=== PATIENT | female | born 1970 | race African-American/Black ===

== ENCOUNTER 2019-12-07 06:15 | Emergency (ER) | payer MEDICAID ==
[~2019-12-07] VITALS: Ht 170.2 cm; Wt 127.0 kg
[~2019-12-07 06:15] MED LIST: ARIP15TA2; BUS5; DIPH50TA19; HYDROXZINE; LORAZEPAM; PARO-41
[2019-12-07] MEDS ORDERED: ASPIRIN 81MG TABLET PO ONE (07:15)
[2019-12-07] MEDS ORDERED: NITROGLYCERIN 0.4MG TABLET SL SL PRN (07:15)
[2019-12-07 07:26] LABS: BASOPHILS % 0.8 % (0.0-2.0); EOSINOPHILS % 1.2 % (0.0-5.0); HEMATOCRIT. 37.2 % (36.0-48.0); HEMOGLOBIN. 12.1 g/dL (12.0-16.0); LYMPHOCYTES % 16.8 % (20.0-50.0); MEAN CORPUSCULAR HEMOGLOBIN 23.5 pg (28.0-32.0); MEAN CORPUSCULAR VOLUME 72.5 fL (81.0-99.0); MEAN PLATELET VOLUME 8.2 fl (7.4-10.4); MONOCYTES % 6.3 % (2.0-8.0); NEUTROPHILS % 74.9 % (40.0-76.0); PLATELET 421 x1000/uL (130-400); RED BLOOD CELL COUNT 5.13 mill/uL (4.2-5.4); RED CELL DISTRIBUTION WIDTH 18.2 % (11.6-14.6)
[2019-12-07 07:36] LABS: CHLORIDE 108 mEq/L (98-107)
[2019-12-07 07:42] LABS: HCG SCREEN NEGATIVE
[2019-12-07 10:42] VITALS: BP 147/87
== END 2019-12-07 10:47 | disposition home or self-care (01) ==
LOC: ER 06:15
DX: R07.9 Chest pain, unspecified (principal); J45.909 Unspecified asthma, uncomplicated; I10 Essential (primary) hypertension; D64.9 Anemia, unspecified
CPT/HCPCS: 36415; 71045; 80053; 83880; 84439; 84443; 84481; 84484; 84703; 85025; 93005; 99285; Z7610

== ENCOUNTER 2022-04-11 21:32 | Inpatient (IN) | payer MEDICAID, OTHER ==
[~2022-04-11] VITALS: Ht 177.8 cm; Wt 158.8 kg
[2022-04-11] MEDS ORDERED: SODIUM CHLORIDE 0.9% 1,000 ML IV ONE (22:45)
[2022-04-11 23:30] LABS: BASOPHILS % 0.9 % (0.0-2.0); CHLORIDE 103 mEq/L (98-107); HEMATOCRIT. 40.5 % (36.0-48.0); LYMPHOCYTES % 12.5 % (20.0-50.0); MEAN CORPUSCULAR HEMOGLOBIN 23.9 pg (28.0-32.0); MEAN CORPUSCULAR VOLUME 74.6 fL (81.0-99.0); MEAN PLATELET VOLUME 8.7 fl (7.4-10.4); MONOCYTES % 12.7 % (2.0-8.0); NEUTROPHILS % 73.9 % (40.0-76.0); PLATELET 319 x1000/uL (130-400); RED BLOOD CELL COUNT 5.43 mill/uL (4.2-5.4); RED CELL DISTRIBUTION WIDTH 17.1 % (11.6-14.6)
[2022-04-11] MEDS ORDERED: AZITHROMYCIN 500MG/250ML 250 ML IV ONE (23:30)
[2022-04-11] MEDS ORDERED: CEFTRIAXONE 1 G PREMIX 50 ML IV ONE (23:30)
[2022-04-11 23:32] LABS: HCG SCREEN NEGATIVE
[2022-04-11 23:46] LABS: ETHANOL BLOOD < 10 mg/dL
[2022-04-12 02:28] LABS: CLARITY URINE CLOUDY (CLEAR); COLOR URINE YELLOW (YELLOW); KETONES URINE TRACE (NEGATIVE); LEUKOCYTE ESTERASE URINE 1+ (NEGATIVE); NITRITE URINE NEGATIVE (NEGATIVE); OCCULT BLOOD URINE NEGATIVE (NEGATIVE); PROTEIN URINE 2+ (NEGATIVE); SPECIFIC GRAVITY URINE 1.015 (1.005-1.030)
[2022-04-12 02:49] LABS: *AMPHETAMINES SCREEN URINE NEGATIVE (NEGATIVE); *BARBITURATES SCREEN URINE NEGATIVE (NEGATIVE); *BENZODIAZEPINES SCREEN URINE NEGATIVE (NEGATIVE); *COCAINE SCREEN URINE NEGATIVE (NEGATIVE); CANNABINOID URINE SCREEN NEGATIVE (NEGATIVE); METHADONE URINE SCREEN NEGATIVE (NEGATIVE); OPIATES URINE SCREEN NEGATIVE (NEGATIVE); PHENCYCLIDINE URINE SCREEN NEGATIVE (NEGATIVE)
[2022-04-12] MEDS ORDERED: IOHEXOL-350 100 ML BOTTLE ONE (02:59)
[2022-04-12 05:30] VITALS: BP 106/61
[2022-04-12] MEDS ORDERED: *PATIENT'S OWN MEDICATION STORAGE XX SCH (06:30)
[2022-04-12] MEDS ORDERED: CEPH500T MT (06:39)
[2022-04-12] MEDS ORDERED: TOPUD PO (06:39)
[2022-04-12] MEDS ORDERED: SERT-422 MT (06:39)
[2022-04-12] MEDS ORDERED: LOSA50TA41 PO (06:39)
[2022-04-12] MEDS ORDERED: TRAMADOL 50MG TABLET PO PRN (07:00)
[2022-04-12] MEDS ORDERED: DOCUSATE SODIUM 100MG CAPSULE PO PRN (07:00)
[2022-04-12] MEDS ORDERED: PIPERACILLIN/TAZOBACTAM 3.375 G in DEXTROSE 5% WATER 50 ML IV SCH (07:00)
[2022-04-12] MEDS ORDERED: ONDANSETRON HCL 4MG/2ML INJ IV PRN (07:00)
[2022-04-12] MEDS ORDERED: PIPERACILLIN/TAZ 3.375G PREMIX 50 ML IV NR (07:00)
[2022-04-12] MEDS ORDERED: MAGNESIUM/ALUMINUM HYDROXIDE/SIMETHICONE 30ML UDC PO PRN (07:00)
[2022-04-12] MEDS ORDERED: ACETAMINOPHEN 325MG TABLET PO PRN (07:00)
[2022-04-12 08:00] VITALS: BP_SYST 107; BP_SYST 115; BP_DIAS 67; BP_DIAS 75
[2022-04-12] MEDS: ENOXAPARIN 40MG/0.4ML SYR SUBCUT SCH ×2 (09:41→22:09)
[2022-04-12] MEDS: SODIUM CHLORIDE 0.9% 1,000 ML IV SCH ×2 (10:37→20:20)
[2022-04-12] MEDS ORDERED: NALOXONE HCL 0.4MG/ML VIAL IV PRN (11:00)
[2022-04-12 12:00] VITALS: BP 105/68
[2022-04-12] MEDS ORDERED: PIPERACILLIN/TAZOBACTAM 3.375G in DEXT 5% WATER 50ML IV SCH (14:00)
[2022-04-12] MEDS: PIPERACILLIN/TAZOBACTAM 3.375G in DEXT 5% WATER 50ML IV SCH ×2 (14:55→23:21)
[2022-04-12 16:00] VITALS: BP_SYST 117; BP_DIAS 74; BP_DIAS 78
[2022-04-12 20:00] VITALS: BP_SYST 101; BP_SYST 105; BP_DIAS 66; BP_DIAS 69
[2022-04-12] MEDS ORDERED: IPRATROPIUM/ALBUTEROL 0.5-3(2.5)MG/3ML NEB HHN PRN (23:00)
[2022-04-13] VITALS: BP 110/61
[2022-04-13 04:00] VITALS: BP 121/82
[2022-04-13] MEDS: PIPERACILLIN/TAZOBACTAM 3.375G in DEXT 5% WATER 50ML IV SCH ×2 (06:29→14:10)
[2022-04-13 06:40] LABS: BASOPHILS % 0.5 % (0.0-2.0); EOSINOPHILS % 0.1 % (0.0-5.0); HEMATOCRIT. 38.7 % (36.0-48.0); HEMOGLOBIN. 12.4 g/dL (12.0-16.0); LYMPHOCYTES % 18.1 % (20.0-50.0); MEAN CORPUSCULAR HEMOGLOBIN 24.1 pg (28.0-32.0); MEAN CORPUSCULAR VOLUME 75.5 fL (81.0-99.0); MEAN PLATELET VOLUME 8.7 fl (7.4-10.4); MONOCYTES % 10.4 % (2.0-8.0); NEUTROPHILS % 70.9 % (40.0-76.0); PLATELET 305 x1000/uL (130-400); RED BLOOD CELL COUNT 5.13 mill/uL (4.2-5.4); RED CELL DISTRIBUTION WIDTH 16.8 % (11.6-14.6)
[2022-04-13 07:35] LABS: CHLORIDE 106 mEq/L (98-107); HDL CHOLESTEROL 27 mg/dL (40-59); LDL CHOLESTEROL 90 mg/dL (5-100)
[2022-04-13 08:00] VITALS: BP 139/74
[2022-04-13] MEDS: ENOXAPARIN 40MG/0.4ML SYR SUBCUT SCH (08:13)
[2022-04-13] MEDS: SODIUM CHLORIDE 0.9% 1,000 ML IV SCH (08:13)
[2022-04-13 12:00] VITALS: BP 131/76
[2022-04-13 13:12] VITALS: BP 131/76
[2022-04-13 16:00] VITALS: BP 125/81
== END 2022-04-13 16:30 | disposition home or self-care (01) | DRG 720 ==
LOC: ER 21:32 → 8WST 04-12 03:38 → ENRESERV 04-12 04:24
PROVIDERS: ADMIT Hospitalist; ATTEND Hospitalist
DX: A41.9 Sepsis, unspecified organism (principal); J96.91 Respiratory failure, unspecified with hypoxia; N17.9 Acute kidney failure, unspecified; E44.1 Mild protein-calorie malnutrition; J45.901 Unspecified asthma with (acute) exacerbation; Z68.43 Body mass index [BMI] 50.0-59.9, adult; E04.2 Nontoxic multinodular goiter; Z20.822 Contact with and (suspected) exposure to COVID-19; I10 Essential (primary) hypertension; N39.0 Urinary tract infection, site not specified; Z82.49 Family history of ischemic heart disease and other diseases of the circulatory system; Z79.899 Other long term (current) drug therapy; Z88.8 Allergy status to other drugs, medicaments and biological substances
CPT/HCPCS: 36415; 71045; 71275; 76536; 80053; 80061; 80305; 80307; 80320; 80329; 81003; 83605; 84145; 84439; 84443; 84484; 84703; 85025; 85379; 86850; 86870; 86900; 87426; 93005; 93306; 93970; 99291; C9803; J0456; J0696; J1650; J2543; J7030; J7060; Q9967; G0480

== ENCOUNTER 2023-02-05 09:31 | Emergency (ER) | payer MEDICAID ==
[~2023-02-05] VITALS: Ht 175.3 cm; Wt 108.0 kg
[~2023-02-05 09:31] MED LIST changes: -ARIP15TA2; -BUS5; +CEPH500T MT; -DIPH50TA19; -HYDROXZINE; -LORAZEPAM; +LOSA50TA41 PO; -PARO-41; +SERT-422 MT; +TOPUD PO
[2023-02-05 09:38] VITALS: BP 166/120; TEMP 98.2; O2SAT 98
[2023-02-05] MEDS ORDERED: OFLO5DRO RIGHTEYE (12:07)
[2023-02-05 12:10] VITALS: PULSE 94; RESP 18
== END 2023-02-05 14:10 | disposition home or self-care (01) ==
LOC: ER 09:31
DX: H10.9 Unspecified conjunctivitis (principal); I10 Essential (primary) hypertension; J45.909 Unspecified asthma, uncomplicated
CPT/HCPCS: 99283

== ENCOUNTER 2023-08-07 14:55 | Emergency (ER) | payer MEDICAID ==
[~2023-08-07] VITALS: Ht 170.2 cm; Wt 109.0 kg
[~2023-08-07 14:55] MED LIST changes: +OFLO5DRO RIGHTEYE
[2023-08-07 15:03] VITALS: O2SAT 99
[2023-08-07] MEDS ORDERED: LOSA50TA41 PO (15:44)
[2023-08-07] MEDS ORDERED: P50 MT (15:44)
[2023-08-07] MEDS ORDERED: ALBU6.7H15 INH (15:44)
[2023-08-07 16:11] VITALS: BP 147/108; PULSE 93; RESP 20; TEMP 97.8
== END 2023-08-07 16:12 | disposition home or self-care (01) ==
LOC: ER 14:55
DX: J45.901 Unspecified asthma with (acute) exacerbation (principal); I10 Essential (primary) hypertension; D64.89 Other specified anemias
CPT/HCPCS: 99283

== ENCOUNTER 2023-12-26 10:07 | Emergency (ER) | payer MEDICAID ==
[~2023-12-26] VITALS: Ht 180.3 cm; Wt 127.0 kg
[~2023-12-26 10:07] MED LIST changes: +ALBU6.7H15 INH; +P50 MT
[2023-12-26 10:12] VITALS: O2SAT 94
[2023-12-26] MEDS: DIPHENHYDRAMINE 50MG/ML VIAL IM ONE (10:42)
[2023-12-26] MEDS ORDERED: HYDR453.3 TP (11:44)
[2023-12-26 12:00] VITALS: BP 148/88; PULSE 96; RESP 16; TEMP 98.3
== END 2023-12-26 12:01 | disposition home or self-care (01) ==
LOC: ER 10:14
DX: T78.40XA Allergy, unspecified, initial encounter (principal); I10 Essential (primary) hypertension; J45.909 Unspecified asthma, uncomplicated; Z79.899 Other long term (current) drug therapy; X58.XXXA Exposure to other specified factors, initial encounter
CPT/HCPCS: 99283; 96372; J1200

== ENCOUNTER 2024-08-24 18:58 | Emergency (ER) | payer MEDICAID, OTHER ==
[~2024-08-24] VITALS: Ht 180.3 cm; Wt 141.0 kg
[~2024-08-24 18:58] MED LIST changes: +AMLO10TA80 PO; -CEPH500T MT; +FAMO20TA8 PO; +FERR-63 PO; +HYDR453.3 TP; +P20 PO; -P50 MT
[2024-08-24 19:20] VITALS: O2SAT 95
[2024-08-25 01:42] VITALS: BP 135/75; PULSE 90; RESP 18; TEMP 36.9; O2SAT 97
== END 2024-08-25 01:45 | disposition home or self-care (01) ==
LOC: ER 18:58
DX: G62.89 Other specified polyneuropathies (principal); I10 Essential (primary) hypertension; J45.909 Unspecified asthma, uncomplicated; Z79.52 Long term (current) use of systemic steroids; Z79.899 Other long term (current) drug therapy; Z88.5 Allergy status to narcotic agent
CPT/HCPCS: 73130; 99283

== ENCOUNTER 2024-12-19 22:36 | Inpatient (IN) | payer MEDICAID ==
[~2024-12-19] VITALS: Ht 177.8 cm; Wt 162.0 kg
[~2024-12-19 22:36] MED LIST changes: +FURO-151 MT; +POTA-205 MT
[2024-12-20] VITALS (8 sets, daily range): BP systolic 100–132; BP diastolic 67–80; PULSE 72–101; RESP 16–25; TEMP 36.4–36.9; O2SAT 97–100
[2024-12-20 00:32] LABS: BASOPHILS % 0.6 % (0.0-2.0); EOSINOPHILS % 1.4 % (0.0-5.0); HEMATOCRIT. 42.6 % (36.0-48.0); HEMOGLOBIN. 13.6 g/dL (12.0-16.0); LYMPHOCYTES % 9.4 % (20.0-50.0); MEAN PLATELET VOLUME 8.8 fl (7.4-10.4); MONOCYTES % 10.5 % (2.0-8.0); NEUTROPHILS % 78.1 % (40.0-76.0); PLATELET 304 x1000/uL (130-400); RED BLOOD CELL COUNT 5.57 mill/uL (4.2-5.4); RED CELL DISTRIBUTION WIDTH 17.6 % (11.6-14.6)
[2024-12-20 00:42] LABS: UREA NITROGEN BLOOD 25 mg/dL (9-23)
[2024-12-20 00:43] LABS: ETHANOL BLOOD < 10 mg/dL (<10); TROPONIN I HIGH SENSITIVITY < 4 ng/L (3.0-34)
[2024-12-20 00:44] LABS: ASPARTATE AMINOTRANSFERASE 20 IU/L (<34); BILIRUBIN DIRECT 0.2 mg/dL (<=3.0); BILIRUBIN TOTAL 0.5 mg/dL (0.1-1.0); PROTEIN TOTAL 7.2 g/dL (6.0-8.3)
[2024-12-20 00:48] LABS: CREATININE 1.4 mg/dL (0.6-1.0)
[2024-12-20 01:02] LABS: INR 1.0
[2024-12-20] MEDS ORDERED: ACETAMINOPHEN 325MG TABLET PO PRN ×2 (05:15→17:45)
[2024-12-20] MEDS: IPRATROPIUM/ALBUTEROL 0.5-3(2.5)MG/3ML NEB HHN SCH (08:48)
[2024-12-20] MEDS: AMLODIPINE 10MG TABLET PO SCH (09:00)
[2024-12-20] MEDS: LOSARTAN 50 MG TABLET PO SCH (09:00)
[2024-12-20 09:30] LABS: BASOPHILS % 0.2 % (0.0-2.0); EOSINOPHILS % 1.1 % (0.0-5.0); HEMATOCRIT. 41.1 % (36.0-48.0); HEMOGLOBIN. 13.5 g/dL (12.0-16.0); LYMPHOCYTES % 11.0 % (20.0-50.0); MEAN PLATELET VOLUME 8.6 fl (7.4-10.4); MONOCYTES % 8.3 % (2.0-8.0); NEUTROPHILS % 79.4 % (40.0-76.0); PLATELET 297 x1000/uL (130-400); RED BLOOD CELL COUNT 5.38 mill/uL (4.2-5.4); RED CELL DISTRIBUTION WIDTH 17.5 % (11.6-14.6)
[2024-12-20] MEDS: FERROUS SULFATE 325MG TABLET PO SCH (09:39)
[2024-12-20] MEDS: POTASSIUM CHLORIDE 20MEQ TABLET SR PO SCH (09:39)
[2024-12-20] MEDS: SERTRALINE HCL 50MG TABLET PO SCH (09:40)
[2024-12-20] MEDS: CIPROFLOXACIN 0.3% OPHTH SOLN 2.5ML RIGHTEYE SCH (09:40)
[2024-12-20] MEDS: ENOXAPARIN 40MG/0.4ML SYR SUBCUT SCH (09:40)
[2024-12-20 09:45] LABS: CREATININE 1.0 mg/dL (0.6-1.0); UREA NITROGEN BLOOD 23 mg/dL (9-23)
[2024-12-20] MEDS ORDERED: DEXTROSE 50% WATER 50ML SYRINGE IV PRN (17:45)
[2024-12-20] MEDS ORDERED: ONDANSETRON HCL 4MG/2ML INJ IV PRN (17:45)
[2024-12-20] MEDS ORDERED: IPRATROPIUM/ALBUTEROL 0.5-3(2.5)MG/3ML NEB HHN PRN (17:45)
[2024-12-20] MEDS: INSULIN LISPRO 100 UNITS/ML SUBCUT SCH (21:00)
[2024-12-20] MEDS: BLOOD SUGAR DIAGNOSTIC STRIP TEST SCH (21:00)
[2024-12-20] MEDS: FAMOTIDINE 20MG TABLET PO SCH (21:00)
[2024-12-21] VITALS (9 sets, daily range): BP systolic 96–135; BP diastolic 64–99; PULSE 78–90; RESP 14–20; TEMP 36.6–37.2; O2SAT 98–100
[2024-12-21] MEDS: FUROSEMIDE 40MG/4ML VIAL IVP SCH (08:41)
[2024-12-21] MEDS ORDERED: PANTOPRAZOLE SODIUM 40 MG/VIAL IV SCH (09:00)
[2024-12-21 09:13] LABS: BASOPHILS % 0.3 % (0.0-2.0); EOSINOPHILS % 1.4 % (0.0-5.0); HEMATOCRIT. 43.4 % (36.0-48.0); HEMOGLOBIN. 14.1 g/dL (12.0-16.0); LYMPHOCYTES % 11.1 % (20.0-50.0); MEAN PLATELET VOLUME 8.9 fl (7.4-10.4); MONOCYTES % 8.9 % (2.0-8.0); NEUTROPHILS % 78.3 % (40.0-76.0); PLATELET 309 x1000/uL (130-400); RED BLOOD CELL COUNT 5.65 mill/uL (4.2-5.4); RED CELL DISTRIBUTION WIDTH 17.3 % (11.6-14.6)
[2024-12-21 09:27] LABS: CREATININE 0.9 mg/dL (0.6-1.0); UREA NITROGEN BLOOD 20 mg/dL (9-23)
[2024-12-21 13:55] LABS: BASOPHILS % 0.5 % (0.0-2.0); EOSINOPHILS % 1.0 % (0.0-5.0); HEMATOCRIT. 44.0 % (36.0-48.0); HEMOGLOBIN. 13.7 g/dL (12.0-16.0); LYMPHOCYTES % 11.8 % (20.0-50.0); MEAN PLATELET VOLUME 8.5 fl (7.4-10.4); MONOCYTES % 7.1 % (2.0-8.0); NEUTROPHILS % 79.6 % (40.0-76.0); PLATELET 303 x1000/uL (130-400); RED BLOOD CELL COUNT 5.63 mill/uL (4.2-5.4); RED CELL DISTRIBUTION WIDTH 17.8 % (11.6-14.6)
[2024-12-21 14:11] LABS: CREATININE 0.9 mg/dL (0.6-1.0); UREA NITROGEN BLOOD 18 mg/dL (9-23)
== END 2024-12-21 16:08 | disposition home or self-care (01) | DRG 48 ==
LOC: ER 22:36 → EDBEDREQ 12-20 00:50 → EDBEDREQDT 12-20 00:50 → EDBEDREQTM 12-20 00:50 → ENRESERV 12-20 01:32 → 3WST 12-20 01:52
PROVIDERS: ADMIT Internal Medicine; ATTEND Internal Medicine
DX: G90.89 Other disorders of autonomic nervous system (principal); J96.01 Acute respiratory failure with hypoxia; I11.0 Hypertensive heart disease with heart failure; I50.32 Chronic diastolic (congestive) heart failure; I95.9 Hypotension, unspecified; E86.0 Dehydration; E78.00 Pure hypercholesterolemia, unspecified; J45.909 Unspecified asthma, uncomplicated; R73.03 Prediabetes; Z88.5 Allergy status to narcotic agent; Z88.8 Allergy status to other drugs, medicaments and biological substances
CPT/HCPCS: 36415; 71045; 80048; 80076; 80320; 82962; 83036; 83880; 84484; 85025; 85379; 93005; 94070; 94640; 94664; 99285; A4606; J1650; J1938; G0480